=== PATIENT | male | born 1995 | race Caucasian/White ===

== ENCOUNTER 2021-08-25 19:03 | Emergency (ER) | payer OTHER ==
[2021-08-25] MEDS ORDERED: Sodium Chloride 0.9% 10 ML Syringe FLUSH PRN (19:30)
[2021-08-25] MEDS ORDERED: Sodium Chloride 0.9% 2.5 ML Syringe FLUSH PRN (19:30)
--- NOTE | 2021-08-25 19:32 | EDM.PDOC ---
<Zunilda Johnson - Last Filed: 08/25/21 21:22> ED HPI GENERAL MEDICAL PROBLEM - General Chief Complaint: Chest Pain Stated Complaint: CHEST PAIN Time Seen by Provider: 08/25/21 19:34 Source of Information: Reports: Patient History Limitations: Reports: No Limitations - History of Present Illness INITIAL COMMENTS - FREE TEXT/NARRATIVE: HISTORY AND PHYSICAL: History of present illness: The patient is a 26-year-old male who presents to the emergency department with complaints of sided chest pain that feels like a pressure that started approximately 1 hour prior to arrival. The patient states that he also has some squeezing pain in his right upper arm. Patient states that he was on his way to the gym and started having chest pain. He waited for approximately 1 hour and then came to the emergency department. The patient denies any symptoms such as nausea, vomiting, diaphoresis, lightheadedness, or shortness of breath. The patient does not have any family history of heart disease. The patient has never had anything like this previously. Patient denies any fever, chills, headache, change in vision, syncope or near syncope. Denies any back pain, shortness of breath or cough. Denies any abdominal pain, nausea, vomiting, diarrhea, constipation or dysuria. Has not noted any blood in urine or stool. Patient has been eating and drinking appropriately. Review of systems: As per history of present illness and below otherwise all systems reviewed and negative. Past medical history: As per history of present illness and as reviewed below otherwise noncontributory. Surgical history: As per history of present illness and as reviewed below otherwise noncontributory. Social history: See social history for further information Family history: As per history of present illness and as reviewed below otherwise noncontributory. Physical exam: General: Well developed and well nourished. Alert and orientated x 3. Nontoxic in appearance and in no acute distress. Vital signs are stable and have been reviewed by me. Nursing notes were reviewed. HEENT: Atraumatic, normocephalic, pupils equal and reactive bilaterally, negative for conjunctival pallor or scleral icterus, mucous membranes moist, TMs normal bilaterally, throat clear, neck supple, nontender, trachea midline. No drooling or trismus noted. No meningeal signs. No hot potato voice noted. Lungs: Clear to auscultation bilaterally. No wheezes, rales, or rhonchi. Chest nontender. Normal work of breathing, no accessory muscles used. Heart: S1S2, regular rate and rhythm without overt murmur, gallops, or rubs. No JVD. No peripheral edema Abdomen: Soft, nondistended, nontender. Normoactive bowel sounds. Negative for masses or costovertebral tenderness. Skin: Intact, warm, dry. No lesions or rashes noted. Hematologic: No petechiae or purpra. Mucosa appropriate color and normal nail bed color and refill. Extremities: Atraumatic, moves all extremities per self without difficulty or deficits, negative for cords or calf pain. Neurovascular unremarkable. Neuro: Awake, alert, oriented. Cranial nerves II through XII unremarkable. Cerebellum unremarkable. Motor and sensory unremarkable throughout. Exam nonfocal. Psychiatric: Mood and affect are appropriate. Normal thought process. Answering questions appropriately. Notes: *This patient was seen and evaluated during the 2019 SARS-CoV-2 novel coronavirus pandemic period. Community viral transmission is ongoing at time of this encounter and the emergency department is operating under pandemic response procedures. As stated above the patient is a 26-year-old male who presents to the emergency department with left-sided chest pain and left upper arm squeezing sensation that started 1 hour prior to arrival. The patient's has no other symptoms such as nausea, vomiting, shortness of breath, diaphoresis. The patient's EKG was read by Dr. Archibald as normal. I have ordered an EKG work-up on the patient. The patient is agreeable with this plan. The patient's CBC is unremarkable. The patient's INR is unremarkable and the patient's D-dimer is within normal limits. The patient's chemistry is unremark able. The patient's troponin is within normal limits. The patient's lipase was within normal limits. The patient states that he is not having chest pain at this moment but that its intermittent. Chest x-ray IMPRESSION: No acute cardiopulmonary findings. The pain is not reproducible. Dr. Archibald consulted on case. The patient's heart score is 0. We will repeat the troponin at the 4- hour leslie which is 1030. I have talked with the patient about today's findings, in addition to providing specific details for plan of care. Reassessment at the time of disposition demonstrates that the patient is in no acute distress. The patient is stable for discharge, counseling was provided and we discussed in great detail signs and symptoms that would prompt them to return to the Emergency Department. Medication, follow up and supportive care measures were reviewed and discussed. Voices understanding and is agreeable to plan of care. Denies any further questions or concerns at this time. Diagnostics: CBC, CMP, INR, troponin, EKG, chest x-ray Impression: Chest pain Plan: 1. You were evaluated today on an emergent basis. Your chest pain was evaluated with an EKG which was normal. We did a CBC which was normal. Your chemistry which has your electrolytes and it was normal. The cardiac enzyme troponin was drawn upon arrival and then 4 hours after the onset of your symptoms and it was normal. This indicates this is not cardiac in nature. I did a D-dimer that would test for a blood clot in your lungs and again this was negative. Your chest x-ray was also negative. This could be muscular in nature and you could take Motrin for it. I would advise you to follow-up with your primary care if this continues to happen or return to the emergency department if you start having chest pain or shortness of breath or dizziness or nausea and vomiting along with your chest pain. 2. You can alternate Tylenol and ibuprofen as needed for pain and fever management. 3. We encourage you to follow up with your primary care provider and/or recommended specialist in the next few days for re-evaluation and further care/management. 4. If your symptoms should worsen, new symptoms develop or any of the signs and symptoms we discussed should arise please return to the emergency room or call 911 (if needed). Definitive disposition and diagnosis as appropriate pending reevaluation and review of above. chest Pain Score (Numeric/FACES): 5 - Related Data Allergies Allergy/AdvReac Type Severity Reaction Status Date / Time No Known Allergies Allergy Verified 08/25/21 19:28 Home Meds: Home Meds . [No Known Home Meds] 08/25/21 [History] Departure - Departure Disposition: Home, Self-Care 01 Condition: Good Clinical Impression: Chest pain Qualifiers: Chest pain type: unspecified Qualified Code(s): R07.9 - Chest pain, unspecified Instructions: Nonspecific Chest Pain, Adult Referrals: PCP,Not In Area [Primary Care Provider] - Forms: ED Department Discharge Additional Instructions: The following information is given to patients seen in the emergency department who are being discharged to home. This information is to outline your options for follow-up care. We provide all patients seen in our emergency department with a follow-up referral. The need for follow-up, as well as the timing and circumstances, are variable depending upon the specifics of your emergency department visit. If you don't have a primary care physician on staff, we will provide you with a referral. We always advise you to contact your personal physician following an emergency department visit to inform them of the circumstance of the visit and for follow-up with them and/or the need for any referrals to a consulting specialist. The emergency department will also refer you to a specialist when appropriate. This referral assures that you have the opportunity for follow-up care with a specialist. All of these measure are taken in an effort to provide you with optimal care, which includes your follow-up. Under all circumstances we always encourage you to contact your private physician who remains a resource for coordinating your care. When calling for follow-up care, please make the office aware that this follow-up is from your recent emergency room visit. If for any reason you are refused follow-up, please contact the [facility] Emergency Department at and asked to speak to the emergency department charge nurse. [facility] - Primary Care [address] [place] [address] [id number] [address] [address] Plan: 1. You were evaluated today on an emergent basis. Your chest pain was evaluated with an EKG which was normal. We did a CBC which was normal. Your chemistry which has your electrolytes and it was normal. The cardiac enzyme troponin was drawn upon arrival and then 4 hours after the onset of your symptoms and it was normal. This indicates this is not cardiac in nature. I did a D-dimer that would test for a blood clot in your lungs and again this was negative. Your chest x-ray was also negative. This could be muscular in nature and you could take Motrin for it. I would advise you to follow-up with your primary care if this continues to happen or return to the emergency department if you start having chest pain or shortness of breath or dizziness or nausea and vomiting along with your chest pain. 2. You can alternate Tylenol and ibuprofen as needed for pain and fever m anagement. 3. We encourage you to follow up with your primary care provider and/or recommended specialist in the next few days for re-evaluation and further care/management. 4. If your symptoms should worsen, new symptoms develop or any of the signs and symptoms we discussed should arise please return to the emergency room or call 911 (if needed). <Armani Archibald - Last Filed: 08/25/21 23:12> ED ROS GENERAL - Review of Systems Review Of Systems: Comprehensive ROS is negative, except as noted in HPI. ED EXAM, GENERAL - Physical Exam Exam: See Below Free Text/Narrative:: Physical exam is in the HPI Course - Vital Signs Last Recorded V/S: Last Vital Signs Temp Pulse 66 08/25/21 21:43 Resp 18 08/25/21 21:43 BP 143/83 H 08/25/21 21:43 Pulse Ox 99 08/25/21 21:43 - Orders/Labs/Meds Orders: Active Orders 24 hr Category Date Time Status Cardiac Monitoring [RC] . DIRECTED Care 08/25/21 19:30 Active Sodium Chloride 0.9% [Saline Flush] Med 08/25/21 19:30 Active 10 ml FLUSH ASDIRECTED PRN Sodium Chloride 0.9% [Saline Flush] Med 08/25/21 19:30 Active 2.5 ml FLUSH ASDIRECTED PRN Saline Lock Insert [OM.PC] Stat Oth 08/25/21 19:30 Ordered Medication Orders Sodium Chloride (Sodium Chloride 0.9% 10 Ml Syringe) 10 ml FLUSH ASDIRECTED PRN PRN Reason: Keep Vein Open Last Admin: 08/25/21 19:58 Dose: 10 ml Documented by: DEREJE Sodium Chloride (Sodium Chloride 0.9% 2.5 Ml Syringe) 2.5 ml FLUSH ASDIRECTED PRN PRN Reason: Keep Vein Open Last Admin: 08/25/21 19:58 Dose: 2.5 ml Documented by: DEREJE Labs: Laboratory Tests 08/25/21 08/25/2108/25/21 Range/Units 19:45 19:45 19:45 WBC 8.60 (4.0-11.0) K/uL RBC 5.55 (4.50-5.90) M/uL Hgb 16.5 (13.0-17.0) g/dL Hct 46.8 (38.0-50.0) % MCV 84.3 (80.0-98.0) fL MCH 29.7 (27.0-32.0) pg MCHC 35.3 (31.0-37.0) g/dL RDW Std Deviation 44.3 (28.0-62.0) fl RDW Coeff of Cynthia 14 (11.0-15.0) % Plt Count 398 (150-400) K/uL MPV 9.70 (7.40-12.00) fL Neut % (Auto) 61.3 (48.0-80.0) % Lymph % (Auto) 28.1 (16.0-40.0) % [place] % (Auto) 7.0 (0.0-15.0) % Eos % (Auto) 3.1 (0.0-7.0) % Baso % (Auto) 0.5 (0.0-1.5) % Neut # (Auto) 5.3 (1.4-5.7) K/uL Lymph # (Auto) 2.4 (0.6-2.4) K/uL [place] # (Auto) 0.6 (0.0-0.8) K/uL Eos # (Auto) 0.3 (0.0-0.7) K/uL Baso # (Auto) 0.0 (0.0-0.1) K/uL Nucleated RBC % 0.0 /100WBC Nucleated RBCs # 0 K/uL INR 1.07 D-Dimer, Quantitative < 0.19 (0.0-0.50) mg/L FEU Sodium 138 (136-148) mmol/L Potassium 3.9 (3.5-5.1) mmol/L Chloride 101 (98-107) mmol/L Carbon Dioxide 29.2 (21.0-32.0) mmol/L BUN 16 (7.0-18.0) mg/dL Creatinine 1.3 (0.8-1.3) mg/dL Est Cr Clr Drug Dosing 107.57 mL/min Estimated GFR (MDRD) > 60.0 ml/min Glucose 97 (74-106) mg/dL Calcium 8.7 (8.5-10.1) mg/dL Total Bilirubin 0.3 (0.2-1.0) mg/dL AST 25 (15-37) IU/L ALT 28 (14-63) IU/L Alkaline Phosphatase 48 (46-116) U/L Troponin I < 0.050 (0.000-0.056) ng/mL Total Protein 7.3 (6.4-8.2) g/dL Albumin 4.0 (3.4-5.0) g/dL Globulin 3.3 (2.6-4.0) g/dL Albumin/Globulin Ratio 1.2 (0.9-1.6) Lipase 298 (73-393) U/L // Range/Units 22:30 WBC (4.0-11.0) K/uL RBC (4.50-5.90) M/uL Hgb (13.0-17.0) g/dL Hct (38.0-50.0) % MCV (80.0-98.0) fL MCH (27.0-32.0) pg MCHC (31.0-37.0) g/dL RDW Std Deviation (28.0-62.0) fl RDW Coeff of Cynthia (11.0-15.0) % Plt Count (150-400) K/uL MPV (7.40-12.00) fL Neut % (Auto) (48.0-80.0) % Lymph % (Auto) (16.0-40.0) % [place] % (Auto) (0.0-15.0) % Eos % (Auto) (0.0-7.0) % Baso % (Auto) (0.0-1.5) % Neut # (Auto) (1.4-5.7) K/uL Lymph # (Auto) (0.6-2.4) K/uL [place] # (Auto) (0.0-0.8) K/uL Eos # (Auto) (0.0-0.7) K/uL Baso # (Auto) (0.0-0.1) K/uL Nucleated RBC % /100WBC Nucleated RBCs # K/uL INR D-Dimer, Quantitative (0.0-0.50) mg/L FEU Sodium (136-148) mmol/L Potassium (3.5-5.1) mmol/L Chloride (98-107) mmol/L Carbon Dioxide (21.0-32.0) mmol/L BUN (7.0-18.0) mg/dL Creatinine (0.8-1.3) mg/dL Est Cr Clr Drug Dosing mL/min Estimated GFR (MDRD) ml/min Glucose (74-106) mg/dL Calcium (8.5-10.1) mg/dL Total Bilirubin (0.2-1.0) mg/dL AST (15-37) IU/L ALT (14-63) IU/L Alkaline Phosphatase (46-116) U/L Troponin I < 0.050 (0.000-0.056) ng/mL Total Protein (6.4-8.2) g/dL Albumin (3.4-5.0) g/dL Globulin (2.6-4.0) g/dL Albumin/Globulin Ratio (0.9-1.6) Lipase (73-393) U/L Meds: Medications Generic Name Dose Route Start Last Admin Trade Name Freq PRN Reason Stop Dose Admin Sodium Chloride 10 ml 08/25/21 19:30 08/25/21 19:58 Sodium Chloride 0.9% 10 Ml Syringe FLUSH 10 ml ASDIRECTED PRN Administration Keep Vein Open Sodium Chloride 2.5 ml 08/25/21 19:30 08/25/21 19:58 Sodium Chloride 0.9% 2.5 Ml Syringe FLUSH 2.5 ml ASDIRECTED PRN Administration Keep Vein Open - Re-Assessments/Exams Free Text/Narrative Re-Assessment/Exam: 08/25/21 22:34 Patient with a vague squeezing pain in his arm. He is low risk for coronary vessel disease. If the repeat troponin IV hours after onset of symptoms is negative will tell him it was not a coronary event of significance and let him follow-up with primary care. Departure - Departure Time of Disposition: 23:11 Condition: Good Sepsis Event Note (ED) - Focused Exam Vital Signs: Vital Signs Pulse Resp BP Pulse Ox 08/25/21 21:43 66 18 143/83 H 99 08/25/21 19:30 79 18 149/94 H 100
--- NOTE | 2021-08-25 19:37 | PCM.EKG ---
#1 Interpretation EKG Interpretation Comments: EKG done 08/25/2021 at 7:05 PM shows a sinus rhythm heart rate is 63 a NH interval 188 QT duration of 382 and axis of 43. QRS is normal ST shows minimal ST elevation consistent with early repole. There is no prior for comparison. Impression normal
[2021-08-25 20:16] LABS: BLOOD UREA NITROGEN,BUN 16 mg/dL (7.0-18.0); CARBON DIOXIDE,CO2 29.2 mmol/L (21.0-32.0); CHLORIDE,CL 101 mmol/L (98-107); GLUCOSE RANDOM 97 mg/dL (74-106); LIPASE 298 U/L (73-393); POTASSIUM,K 3.9 mmol/L (3.5-5.1); SODIUM,NA 138 mmol/L (136-148)
--- NOTE | 2021-08-25 20:45 | CR ---
INDICATION: Chest pain. TECHNIQUE: Portable AP chest radiograph. COMPARISON: None available. FINDINGS: No focal pulmonary opacities, pneumothorax, or pleural effusion. Normal cardiac and mediastinal contours. Peripheral left clavicle substance loss with smooth corticated appearing margin, nonspecific but potentially postoperative. IMPRESSION: No acute cardiopulmonary findings. Dictated by Jayson Wade MD @ 08/25/2021 8:43:19 PM Dictated by: Jayson Wade MD @ 08/25/2021 20:43:26 (Electronically Signed)
== END 2021-08-25 23:16 | disposition home or self-care (01) ==
LOC: MW.ED 19:03
DX: R07.89 Other chest pain (principal)
CPT/HCPCS: 36415; 71045; 71045-26; 80053; 83690; 84484; 85025; 85379; 85610; 93005; 99285-25